=== PATIENT | female | born 1935 | race Caucasian/White ===

== ENCOUNTER → 2018-11-06 | Outpatient (CLI) | payer MEDICARE, BC ==
[2018-11-02 13:51] VITALS: BMI 41.1
[2018-11-06 11:56] VITALS: BP 164/71; PULSE 69; RESP 16
--- NOTE | 2018-11-06 12:18 | P.PAINCN ---
History of Present Illness - Reason for Consult Consult date: 11/06/18 Neck pain - Chief Complaint Neck pain - History of Present Illness Sue is a very pleasant 83-year-old female presents today as a new patient consult. She presents today with chief complaint of neck pain. She reports she 's had this neck pain for many years and is status post ACDF in the past. She reports a surgery was about 7 years ago and reports she did not have much improvement after the surgery. Her pain is mostly over the posterior neck and into lower occiput and into the upper shoulders. She denies any numbness or tingling going down her arms but says every once in a while she'll get shooting pain into the arm but is not very consistent. She reports that she sometimes drops things in her hands but is unsure why. She also complains of pain in her lower back and into her legs occasionally. She denies any bowel or bladder incontinence or any lower extremity weakness. She does have knee pain bilateral and has had bilateral total knee replacements about 11 years ago. At this point she currently uses Motrin when necessary as well as [place] as needed. She does not like to take the [place] does not take it regularly. She is seen to other pain doctors in [facility] who recommended a spinal cord stimulator she is not interested in that this time. She says she has had a radiofrequency ablation of the cervical spine the past has helped significantly but has been many years. Past Medical History Past Medical History: Atrial Fibrillation, Diabetes Mellitus, GERD/Reflux, Hypertension Additional Past Medical History / Comment(s): chronic neck and back pain, degenerative and blging discs,sciatica,fast heart rate at times,urinary incontinence,thyroid nodule History of Any Multi-Drug Resistant Organisms: None Reported Past Surgical History: Back Surgery, Cholecystectomy, Heart Catheterization With Stent, Joint Replacement Additional Past Surgical History / Comment(s): heart cath x4,heartcath x2,fercho knee replaced,back x2,neck surg,carpel tunnel,lump removed Past Anesthesia/Blood Transfusion Reactions: No Reported Reaction Date of Last Stent Placement:: unk Past Psychological History: Anxiety Smoking Status: Never smoker Past Alcohol Use History: Occasional Past Drug Use History: None Reported - Past Family History Mother Family Medical History: No Reported History Brother(s) Additional Family Medical History / Comment(s): emphysema Son(s) Family Medical History: Cancer Additional Family Medical History / Comment(s): liver and kidney transplants,2 nd son of unk causes Medications and Allergies Home Medications Medication Instructions Recorded Confirmed Type To Bring List Of Meds 11/02/18 History Allergies Allergy/AdvReac Type Severity Reaction Status Date / Time Penicillins Allergy Rash/Hives Verified 11/06/18 11:41 cardiac stress test dye Allergy Anaphylaxis Uncoded 11/06/18 11:41 Physical Exam General: Awake and alert oriented 3 no distress Respiratory exam: No audible wheezing no accessory muscle usage Cardiovascular exam: regular rate, palpable bilateral pulses, no lower extremity edema Abdominal exam: No distention nontender to palpation Cervical spine: Normal alignment, forward flexed neck, limited range of motion with flexion and extension as well as lateral rotation and side bending. Nontender to palpation. Facet loading is positive bilateral. Unable to check Spurling's due to limited range of motion. Lo's is negative Lumbar spine: Loss of lumbar lordosis, normal alignment, tender to palpation over bilateral paraspinal muscles, facet loading is positive bilaterally. Straight leg raise is negative. Sacroiliac joints: Nontender to palpation, ISAAC is negative, [place] negative Neuro exam: Normal sensation in bilateral upper extremities, deep tendon reflexes are 1 + bilateral upper extremities. Normal sensation in bilateral lower extremities. Deep tendon reflexes are absent + in lower extremities, Lo's is negative Psych exam: Cooperative, appropriate mood Assessment and Plan Assessment: Cervical spondylosis without myelopathy Cervical neural foraminal stenosis Lumbar spondylosis without myelopathy Plan: After discussion with the patient and her and review of her medical records as well as her MRI. I discussed with the patient she has multiple things any causing her pain in the neck. I advised her that we may be able to help manage some pain but it unlikely that we will be able to take care of all of her pain. I advised her that this point would like to proceed with a cervical medial branch block with steroid and see if that improves her pain. [place] we discussed that this is a three-step process if we move forward with radiofrequency ablation. She is aware of that and is willing to proceed. I advised her we'll attempt to do bilateral on each of her visits to avoid her coming in multiple times. Time with Patient: Greater than 30 PQRS Measure Charge Sheet Measure #130: Documentation of Current Meds in Medical Chart: Patient's medications documented in chart Measure #226: Tobacco Use: Screen & Cessation Intervention: Pt not a tobacco user Measure #111: Pneumonia Vaccination: Pneumococcal vaccine administered or previously received Measure #47: Advance Care Plan: Advance care planning discussed & documented, plan or surrogate given Measure #412: Opioid Treatment Agreement: No documentation of signed opioid treatment agreement Measure #317: Preventitive Care & Scrn High Bld Press & F/U: Normal blood pressure, f/u not required Measure #128: Body Mass Index (BMI) Screening & Follow-up: BMI documented within normal parameters Measure #131: Pain Assessment & Follow-up: Pain positive & plan documented, Follow-up scheduled Measure #431: Unhealthy Alcohol Use Preventative Care & Scrn: Patient not identified as an unhealthy alcohol user PQRS Narrative: Smoking Status Never smoker Home Medications: Ambulatory Orders To Bring List Of Meds 11/02/18
== END ==
LOC: PNWHC3 11:33
PROVIDERS: ATTEND Hospitalist
DX: M99.71 Connective tissue and disc stenosis of intervertebral foramina of cervical region (principal); M47.812 Spondylosis without myelopathy or radiculopathy, cervical region; M47.816 Spondylosis without myelopathy or radiculopathy, lumbar region; Z88.0 Allergy status to penicillin; Z91.048 Other nonmedicinal substance allergy status; Z96.653 Presence of artificial knee joint, bilateral
CPT/HCPCS: 99211

== ENCOUNTER → 2018-11-13 | Day surgery (SDC) | payer MEDICARE, BC ==
[2018-11-09 08:54] VITALS: BMI 40.5
[~2018-11-13] MED LIST: IV FLUID CONTINUATION 1,000 ML IV ONE; LACTATED RINGERS 1,000 ML IV ONE; LIDOCAINE 1% 20 ML VIAL (10MG/ML) FOR IV START INTRADERMA ONE; SODIUM CHLORIDE 0.9% 500 ML 500 ML IV SCH
[2018-11-13 07:33] VITALS: RESP 18; TEMP 97.9
[2018-11-13 07:46] LABS: Glucose,Whole Blood 106 mg/dL (75-99)
--- NOTE | 2018-11-13 08:42 | P.PCN ---
Date of Procedure: 11/13/18 Surgeon: Amanda Villafana Pathology: none sent Condition: stable Disposition: PACU Description of Procedure: PREOPERATIVE DIAGNOSIS: Cervical Spondylosis with Facet Arthropathy.without myelopathy POSTOPERATIVE DIAGNOSIS: Cervical Spondylosis Facet Arthropathy. Without myelopathy PROCEDURES: Diagnostic Bilateral. C3,4 medial branchs block with fluoroscopic guidance ANESTHESIA: Local with 1% lidocaine; IV sedation with Versed. EBL: Minimal PROCEDURE INDICATION: The patient with neck pain secondary to cervical arthropathy unresponsive to more conservative treatments. PROCEDURE DESCRIPTION / TECHNIQUE: The patient was seen and identified in the preoperative area. Risks, benefits, complications, and alternatives were discussed with the patient, the patient agreed to proceed with the procedure and signed the consent. IV was started. Vital signs remained stable throughout the procedure. Patient was taken to the OR and time out was completed. The patient was placed in the supine position on the procedure table. . The cervical area was prepped with chloraprep and draped in the usual sterile fashion. Critical pause was taken. Vital signs were closely monitored during the procedure. Conscious sedation was used during the procedure to decrease patients anxiety. Only levels 3 and 4 were done due to the patient's body habitus which obscured the lower levels of the cervical spine. Using cross-table lateral fluoroscopy, the centroid of the trapezoid of C 3,4,5 , was identified, marked, and localized with 1% lidocaine 1 ml at each level for skin and Sub Q infiltrations . Subsequently, a 25 G 3.5 inch spinal needle was advanced guided by fluoroscopy to the centroid of the trapezoid of C3,4 . Subsequently, 2 ml of preservative-free Bupivacaine 0.5% mixed with Dexamethasone 10 mg and half ml of the mixture was injected at each level after negative aspiration for blood and CSF. [place] were then removed intact the same procedure was repeated on the left side. COMPLICATIONS: No acute complications. COMMENTS: DISPOSITION / PLANS: The patient was placed in a supine position and transferred to the recovery area in a stable condition for observation and was discharged from the recovery room after meeting discharge criteria. Home discharge instructions given to the patient by the staff. The patient was reexamined prior to discharge. The patient will schedule a follow up in the clinic in 2-4 weeks.
--- NOTE | 2018-11-13 08:56 | FL ---
EXAMINATION TYPE: FL guided pain mgmt statistic DATE OF EXAM: 11/13/2018 CLINICAL HISTORY: Neck pain. TECHNIQUE: Fluoroscopy. COMPARISON: None. FINDINGS: Fluoroscopic guidance was provided during pain relief procedure performed by Dr. Villafana . A total of 33 seconds of fluoroscopic time was utilized during the procedure and 1 spot intraoperat pedro pablo fluoroscopic image is acquired. Single image acquired shows needle localization at C4 level. IMPRESSION: As Above.
[2018-11-13 09:04] VITALS: BP 129/61; PULSE 60
== END ==
LOC: ORPAIN 06:46
PROVIDERS: ATTEND Anesthesiology
DX: M47.812 Spondylosis without myelopathy or radiculopathy, cervical region (principal); E11.9 Type 2 diabetes mellitus without complications; I10 Essential (primary) hypertension; I25.10 Atherosclerotic heart disease of native coronary artery without angina pectoris; Z88.0 Allergy status to penicillin; Z91.041 Radiographic dye allergy status
CPT/HCPCS: 64490; 64491; J2250; J1100; 99152

== ENCOUNTER 2018-11-27 06:33 | Day surgery (SDC) | payer MEDICARE, BC ==
[2018-11-23 10:36] VITALS: BMI 42.3
[~2018-11-27 06:33] MED LIST changes: -IV FLUID CONTINUATION 1,000 ML IV ONE; -LACTATED RINGERS 1,000 ML IV ONE; -LIDOCAINE 1% 20 ML VIAL (10MG/ML) FOR IV START INTRADERMA ONE
[2018-11-27 07:25] VITALS: RESP 20; TEMP 98.3
[2018-11-27] MEDS ORDERED: LIDOCAINE 1% 20 ML VIAL (10MG/ML) FOR IV START INTRADERMA ONE (07:35)
[2018-11-27] MEDS ORDERED: LACTATED RINGERS 1,000 ML IV ONE (07:35)
[2018-11-27 07:37] LABS: Glucose,Whole Blood 168 mg/dL (75-99)
--- NOTE | 2018-11-27 08:17 | P.PCN ---
Date of Procedure: 11/27/18 Surgeon: Amanda Villafana Pathology: none sent Condition: stable Disposition: PACU Description of Procedure: PREOPERATIVE DIAGNOSIS: Cervical Spondylosis with Facet Arthropathy.without myelopathy POSTOPERATIVE DIAGNOSIS: Cervical Spondylosis Facet Arthropathy. Without myelopathy PROCEDURES: Diagnostic Bilateral. C3,4 medial branchs block with fluoroscopic guidance ANESTHESIA: Local with 1% lidocaine; IV sedation with Versed. EBL: Minimal PROCEDURE INDICATION: The patient with neck pain secondary to cervical arthropathy unresponsive to more conservative treatments. PROCEDURE DESCRIPTION / TECHNIQUE: The patient was seen and identified in the preoperative area. Risks, benefits, complications, and alternatives were discussed with the patient, the patient agreed to proceed with the procedure and signed the consent. IV was started. Vital signs remained stable throughout the procedure. Patient was taken to the OR and time out was completed. The patient was placed in the supine position on the procedure table. . The cervical area was prepped with chloraprep and draped in the usual sterile fashion. Critical pause was taken. Vital signs were closely monitored during the procedure. Conscious sedati on was used during the procedure to decrease patients anxiety. Only C 3 and 4 medial bracnches were done due to the patient's body habitus which obscured the lower levels of the cervical spine. Using cross-table lateral fluoroscopy, the center of the trapezoid of C 3,4 was identified, marked, and localized with 1% lidocaine 1 ml at each level for skin and Sub Q infiltrations . Subsequently, a 25 G 3.5 inch spinal needle was advanced guided by fluoroscopy to the center of the trapezoid of C3,4 . Subsequently, 2 ml of preservative-free Bupivacaine 0.5% mixed with Dexamethasone 10 mg and half ml of the mixture was injected at each level after negative aspiration for blood and CSF. [place] were then removed intact the same procedure was repeated on the left side. COMPLICATIONS: No acute complications. COMMENTS: DISPOSITION / PLANS: The patient was placed in a supine position and transferred to the recovery area in a stable condition for observation and was discharged from the recovery room after meeting discharge criteria. Home discharge instructions given to the patient by the staff. The patient was reexamined prior to discharge. The patient will schedule a follow up in the clinic in 2-4 weeks.
[2018-11-27] MEDS ORDERED: IV FLUID CONTINUATION 1,000 ML IV ONE (08:23)
[2018-11-27 08:35] LABS: Glucose,Whole Blood 177 mg/dL (75-99)
[2018-11-27 08:50] VITALS: BP 143/76; PULSE 53
--- NOTE | 2018-11-27 08:54 | FL ---
EXAMINATION TYPE: FL guided pain mgmt statistic DATE OF EXAM: 11/27/2018 HISTORY: Pain 9 sec fl time used during cervical facets 1 image scanned into pacs
== END 2018-11-27 09:09 | disposition home or self-care (01) ==
LOC: ORPAIN 06:33
PROVIDERS: ATTEND Anesthesiology
DX: M47.812 Spondylosis without myelopathy or radiculopathy, cervical region (principal); M48.02 Spinal stenosis, cervical region; M47.816 Spondylosis without myelopathy or radiculopathy, lumbar region; I48.91 Unspecified atrial fibrillation; E11.9 Type 2 diabetes mellitus without complications; K21.9 Gastro-esophageal reflux disease without esophagitis; I10 Essential (primary) hypertension; Z95.5 Presence of coronary angioplasty implant and graft; Z80.9 Family history of malignant neoplasm, unspecified; Z88.0 Allergy status to penicillin; Z91.041 Radiographic dye allergy status
CPT/HCPCS: 64490; 64491; J2250; J1100; 99152

== ENCOUNTER → 2018-12-12 | Outpatient (CLI) | payer MEDICARE, BC ==
[2018-12-12 13:26] VITALS: BP 130/75; PULSE 70; RESP 18
--- NOTE | 2018-12-13 09:36 | P.PN ---
Subjective Progress Note Date: 12/12/18 This is follow-up visit for this patient with a history of severe and chronic neck pain diagnosed with cervical spondylosis with facet arthropathy, We have done interventional pain procedures diagnostic medial branch block cervical area C3 and C4 x2 , she got more than 80% improvement in her neck pain after the first diagnostic block the pain was 9/10 dropped to 0-1/10 after the first diagnostic block , the pain relief was for short-term , and the second diagnostic block the pain was 9/10-4/10 Patients currently on [place] 10/325 every 6 hours when necessary, she is getting prescription refills from her primary care Patient denies any side effects of the medication, denies excessive drowsiness or sleepiness, denies suicidal ideation, and reports that the current pain medication is helping to control the pain ,and improve activity of daily living Patient denies any motor or sensory deficit , patient denies any fever or night sweats, denies any change in the bowel movements or urination Physical Examinations : -Constitutional : Cooperative , not in acute distress . -HEENT : nech ; supple , no Lymphadenopathy , no Thyromegaly , normal thyroid size . eyes : no ptosis , no icterus, no photophobia . ENT : normal of hearing , normal oropharynx , no Thrush . - Respiratory : Chest clear to auscultations Bilaterally , no wheezing , no Rhonchi . - Cardiovascular : regular rate and rhythem , S1 , S2 , no S3 , no S4. - Gastrointestinal : abdomen soft no tenderness , bowel sounds positive all four quadrents , no organomegally . - Genitourinary : [place] . - neurologic: Cranial nerve II to XII intact , no focal neurological deffecit . - Psychatric: alert , oriented X 3 , appropriate affect , intact judgment and insight . - Lymphatic : no Lymphadenopathy . - Musculoskeltal : exams of the cervical spine = motor strength normal bilateral upper extremities facet loading test cervical area positive. Multiple trigger point identified on the left side cervical area , trapezius and rhomboid muscles , suprascapular exams of the L[place] spine =motor strength lower extremities ,thigh and legs .5/5 Assessment and plan = Chronic neck pain secondary to cervical spondylosis. Myofascial pain syndrome cervical suprascapular had positive result after the diagnostic medial branch block , she would be good candidate to have radiofrequency ablation of the medial branch cervical area Will start with the left side and he can only do the right side, also patient could benefit from trigger point injections cervical, suprascapula diagnoses, prognosis, and treatment options including but not limited to physical therapy, surgical interventions, interventional therapies , and medication management including narcotics and adjuvant medication were discussed with the patient and all the questions answered MAPS reviewed and it was apropria. - PQRS measures = - Patient's medications are documented in the chart. -Tobacco use is negative and counseling.Given. -Patient's has not received pneumococcal vaccine. -Advanced care planning discussed, patient not eligible. -Opiate contract not signed. -Pain positive and follow-up visit/procedure is scheduled. -Patient's blood pressure measured [130/75 ] , and documented in the record ,and patient will follow up with the primary care. -Patient's weight was measured and body mass index [40.8 ] above the,within the normal limits and counseling was done. and patient instructed to follow-up with the primary care physician. -Patient was not identified as an unhealthy alcohol user Objective - Vital Signs Vital signs: Vital Signs Temp Pulse 70 12/12/18 13:18 Resp 18 12/12/18 13:18 BP 130/75 12/12/18 13:18 Pulse Ox 96 12/12/18 13:18 Intake & Output 12/12/18 12/13/18 12/13/18 18:59 06:59 18:59 Weight 111.13 kg
== END ==
LOC: PNWHC3 13:09
PROVIDERS: ATTEND Specialist
DX: G89.29 Other chronic pain (principal); M47.812 Spondylosis without myelopathy or radiculopathy, cervical region; M79.18 Myalgia, other site; M46.82 Other specified inflammatory spondylopathies, cervical region; Z98.890 Other specified postprocedural states; Z79.891 Long term (current) use of opiate analgesic
CPT/HCPCS: 99211

== ENCOUNTER 2019-01-25 09:41 | Day surgery (SDC) | payer MEDICARE, BC ==
[2019-01-23 09:47] VITALS: BMI 39.9
[~2019-01-25 09:41] MED LIST changes: +LACTATED RINGERS 1,000 ML IV SCH; -SODIUM CHLORIDE 0.9% 500 ML 500 ML IV SCH
[2019-01-25] MEDS ORDERED: LIDOCAINE 1% 20 ML VIAL (10MG/ML) FOR IV START INTRADERMA ONE (10:45)
[2019-01-25 10:46] VITALS: TEMP 97.1
[2019-01-25 11:06] LABS: Glucose,Whole Blood 120 mg/dL (75-99)
--- NOTE | 2019-01-25 11:40 | P.PCN ---
Date of Procedure: 01/25/19 Procedure(s) Performed: PREOPERATIVE DIAGNOSIS: 1-Cervical spondylosis with Facet Arthropathy without myelopathy. 2-myofascial pain syndrome suprascapular bilateral POSTOPERATIVE DIAGNOSIS: Same as preop diagnosis PROCEDURES: Radiofrequency thermocoagulation, left side C3, C4, medial branch with Fluroscopy [place]. Trigger point injection bilateral suprascapular muscles ,1 on the left side suprascapular, and: On the right side suprascapular muscles, ANESTHESIA: Local with Ropivacaine 0.5 % , moderate sedation with fentanyl 100 micrograms and Versed. 2mg EBL: Minimal PROCEDURE INDICATION: The patient with neck pain secondary to cervical arthropathy who had more than 50% relief of her pain with previous diagnostic cervical medial branch block. PROCEDURE DESCRIPTION / TECHNIQUE: The patient was seen and identified in the preoperative area. Risks, benefits, complications, and alternatives were discussed with the patient, the patient agreed to proceed with the procedure and signed the consent. IV was started. Vital signs remained stable throughout the procedure. Patient was taken to the OR and time out was completed. The patient was placed in the prone position on the procedure table. A pillow was placed under the patients chest to increase the cervical interlaminar space. The cervical area was prepped and draped in the usual sterile fashion. Critical pause was taken. Vital signs were closely monitored during the procedure. Conscious sedation was used during the procedure to decrease patients anxiety. Using cross-table lateral fluoroscopy, the centroid of the trapezoid of left C3, C4, were identified, marked, and localized with 1% lidocaine. Subsequently, a 20 -xh radiofrequency cannula with a 10-mm active tip was advanced guided by fluoroscopy to the centroid of the trapezoid of the left C3, C4, . Needle tip position was confirmed at the centroid of the trapezoids of the left C3, C4, with anteroposterior fluoroscopy. Each site then underwent sensory testing at 50 Hz and 0 to 1 volt and motor testing at 2 Hz and 0 to 3 volt with local stimulation, but no radicular symptoms down the arm. Thereafter the left C3, C4, sites underwent radiofrequency thermocoagulation at 80 degrees celsius for 90 seconds after injecting 0.5 ml of PF Ropivacaine 0.5 %. After thermocoagulation, 1 ml of the block solution containing Depo-Medrol 40 mg and 2 mL of preservative-free normal saline was injected at the left C3, C4, levels after negative aspiration of CSF and blood and with no paresthesias. Cannulas were retracted while injecting lidocaine 1% until the needle is out. Then the trigger point injection on the right and left suprascapular muscles using 25-gauge needle each of the trigger point injected with ropivacaine 0.5% tormented injected at each point after negative aspiration and there was no paresthesia during the injection, COMPLICATIONS: No acute complications. DISPOSITION / PLANS: The patient was placed in a supine position and transferred to the recovery area in a stable condition for observation and was discharged from the recovery room after meeting discharge criteria. Home discharge instructions given to the patient by the staff. The patient was reexamined prior to discharge. The patient will schedule a follow up in the clinic in 2-4 weeks.
[2019-01-25] MEDS ORDERED: IV FLUID CONTINUATION 700 ML IV ONE (11:44)
[2019-01-25 11:49] VITALS: RESP 18
[2019-01-25 12:08] VITALS: BP 126/63; PULSE 56
--- NOTE | 2019-01-25 13:00 | FL ---
EXAMINATION TYPE: FL guided pain mgmt statistic DATE OF EXAM: 01/25/2019 FLUOROSCOPY Fluoroscopy time of 4 seconds was used during cervical radiofrequency ablation at 2 levels. 2 image/ s document/s the procedure.
== END 2019-01-25 12:14 | disposition home or self-care (01) ==
LOC: ORPAIN 09:41
PROVIDERS: ATTEND Specialist
DX: M47.812 Spondylosis without myelopathy or radiculopathy, cervical region (principal); M79.18 Myalgia, other site; Z88.0 Allergy status to penicillin; Z88.8 Allergy status to other drugs, medicaments and biological substances; Z91.041 Radiographic dye allergy status
CPT/HCPCS: 20552; 64633; J2250; J1030; J3010; 99152